=== PATIENT | female | born 1990 | race Caucasian/White ===

== ENCOUNTER 2018-08-27 22:54 | Emergency (ER) | payer MEDICAID ==
[~2018-08-27] VITALS: Ht 167.6 cm; Wt 65.4 kg
[2018-08-27] MEDS ORDERED: MAALOX/HYOSCYAMINE/LIDOCAINE 45 ML BTL ONE (23:13)
--- NOTE | 2018-08-27 23:18 | NUR ---
PT STATES EPIGASTRIC PAIN OFF AND ONxMULTIPLE WEEKS. STATES INCREASED STRESS IN LIFE AND "I DRINK A LOT OF COFFEE". DENIES ANY OTHER MED HX. PT MILDLY HTN. AWARE. ALL MONITORING APPLIED. MEDICATED PER AUG. AWAITING FURTHER ORDERS.
[2018-08-27] MEDS ORDERED: MAALOX/HYOSCYAMINE/LIDOCAINE 45 ML BTL PO ONE (23:30)
[2018-08-27 23:45] LABS: BASOPHILS # (AUTO) 0.03 x10^3/uL (0-0.1); BASOPHILS % (AUTO) 0 % (0-1); EOSINOPHILS % (AUTO) 1 % (1-7); LYMPHOCYTES # (AUTO) 2.59 x10^3/uL (1-3.4); LYMPHOCYTES % (AUTO) 33 % (22-44); MD NO; MEAN CORPUSCULAR HEMOGLOBIN 28.6 pg (27.0-34.8); MEAN CORPUSCULAR HGB CONC 33.2 g/dL (32.4-35.8); MEAN CORPUSCULAR VOLUME 86.2 fL (80-100); MONOCYTES # (AUTO) 0.48 x10^3/uL (0.2-0.8); MONOCYTES % (AUTO) 6 % (2-9); NEUTROPHILS # (AUTO) 4.67 x10^3/uL (1.8-6.8); NEUTROPHILS % (AUTO) 59 % (42-75); PLATELET COUNT 383 x10^3/uL (130-400); RED BLOOD COUNT 3.87 x10^6/uL (3.82-5.3); RED CELL DISTRIBUTION WIDTH 13.9 % (9.6-15.2)
[2018-08-27 23:52] LABS: ALANINE AMINOTRANSFERASE 23 U/L (12-78); ALBUMIN 3.8 g/dL (3.4-5.0); ANION GAP 2 mmol/L (5-15); CALCIUM 8.6 mg/dL (8.5-10.1); CHLORIDE 111 mmol/L (98-107)
[2018-08-27 23:57] LABS: ALKALINE PHOSPHATASE 63 U/L (45-117); BILIRUBIN,TOTAL 0.2 mg/dL (0.2-1.0); CREATININE 0.96 mg/dL (0.55-1.02); TOTAL PROTEIN 7.8 g/dL (6.4-8.2); TROPONIN I < 0.015 ng/mL (0.000-0.045)
--- NOTE | 2018-08-28 | NUR ---
PT STATES NO RELIEF FROM GI COCKTAIL.
[2018-08-28] MEDS ORDERED: IBUPROFEN 600 MG TABLET ONE (00:10)
[2018-08-28] MEDS ORDERED: ACETAMINOPHEN 500 MG TABLET ONE (00:10)
[2018-08-28] MEDS ORDERED: ACETAMINOPHEN 500 MG TABLET PO ONE (00:30)
[2018-08-28] MEDS ORDERED: IBUPROFEN 200 MG TABLET PO ONE (00:30)
[2018-08-28 01:39] VITALS: BP 118/71
== END 2018-08-28 01:41 | disposition home or self-care (01) ==
LOC: ED 08-28 01:30
DX: R07.89 Other chest pain (principal)
CPT/HCPCS: 36415; 71045; 80053; 83690; 84484; 85025; 93005; 99284